=== PATIENT | male | born 1985 ===

== ENCOUNTER 2021-04-19 01:47 | Inpatient (IN) ==
[2021-04-19] MEDS ORDERED: Octreotide Acetate 50 MCG in NS 0.9% 50 ML 50 ML IV ONE (02:21)
[2021-04-19] MEDS ORDERED: Pantoprazole VIAL 40 MG VIAL IV ONE (02:21)
[2021-04-19 02:28] LABS: ABS Basophils 0.1 10^3/ul (0-0.2); ABS Eosinophils 0.2 10^3/ul (0-0.6); ABS Monocytes 0.8 10^3/ul (0-0.8); ABS Neutrophils 9.3 10^3/ul (1.5-7.7); Eosinophil % 1.3 %; Hematocrit 39 % (42-52); Hemoglobin 13.6 g/dL (14.0-18.0); Lymphocyte % 22.3 %; Mean Corpuscular HGB Conc 35 g/dL (31-36); Mean Corpuscular Hemoglobin 36 pg (27-31); Mean Corpuscular Volume 103 fL (80-94); Mean Platelet Volume 9.6 fL (7.4-10.4); Nucleated Red Blood Cells % 0.1; Platelet Count 161 10^3/uL (150-450); Red Blood Count 3.83 10^6 /uL (4.18-5.48); Red Cell Distribution Width 13 % (10-15); White Blood Count 13.3 10^3/uL (3.5-10.8)
[2021-04-19] MEDS ORDERED: Lactated Ringers 1000 ml BAG 1,000 ML IV ONE (02:30)
[2021-04-19 02:45] LABS: Albumin 3.9 g/dL (3.2-5.2); Albumin/Globulin Ratio 0.8 (1-3); Calcium 9.6 mg/dL (8.6-10.3); Globulin 5.2 g/dL (2-4); Total Bilirubin 3.1 mg/dL (0.2-1.0); Total Protein 9.1 g/dL (6.4-8.9)
[2021-04-19 02:46] LABS: Potassium 3.8 mmol/L (3.5-5.0)
[2021-04-19] MEDS ORDERED: Piperacillin/Tazobac ADVAN 3.375 GM in NS 0.9% 100 ml BAG 100 ML IV ONE (03:06)
[2021-04-19] MEDS: Octreotide Acetate 500 MCG in NS 0.9% 100 ml BAG 100 ML IV SCH ×2 (03:54→13:46)
[2021-04-19] MEDS: Pantoprazole 80 mg in NS BAG 80 MG/250 ML BAG IV SCH ×2 (04:30→13:46)
[2021-04-19] MEDS ORDERED: Ondansetron 4 mg VIAL 2 MG/ML 2 ml VIAL IV PRN (05:15)
[2021-04-19] MEDS ORDERED: Nicotine Lozenge mini 4 MG LOZNG.MINI MT PRN (05:40)
[2021-04-19] MEDS ORDERED: Zosyn per Pharmacy NOTE FOLLOW UP SCH (06:00)
[2021-04-19] MEDS ORDERED: Thiamine 100 MG/ML 2 ml VIAL (200 mg) IM ONE (06:16)
[2021-04-19 06:20] LABS: Activated Partial Thrombo Time 35.6 seconds (26.0-38.0); INR 1.58 (0.86-1.15)
[2021-04-19] MEDS ORDERED: Iohexol 300 (CONTRAST) 10 ML SDV IV ONE (06:31)
[2021-04-19 06:55] LABS: Rapid COVID-19 Molecular Undetected (Undetected)
[2021-04-19] MEDS ORDERED: LORazepam 2 mg VIAL 1 ml IV PUSH SCH (07:00)
[2021-04-19 07:51] LABS: Hematocrit 34 % (42-52); Hemoglobin 11.7 g/dL (14.0-18.0)
[2021-04-19] MEDS: LORazepam 2 mg VIAL 1 ml IV PUSH SCH ×2 (07:57→16:23)
[2021-04-19] MEDS: Nicotine PATCH 21 MG/24 HR PATCH TRANSDERM SCH (08:14)
[2021-04-19 09:00] LABS: Direct Bilirubin 1.3 mg/dL (0.03-0.18)
[2021-04-19] MEDS: ZOSYN 3.375 GM Q8H per EXTENDED INFUSION IV SCH ×2 (09:22→17:20)
[2021-04-19 10:24] LABS: Hematocrit 34 % (42-52); Hemoglobin 11.7 g/dL (14.0-18.0)
[2021-04-19 11:13] LABS: Hepatitis B Surface Antigen Nonreactive (Nonreactive)
[2021-04-19 11:18] LABS: Hepatitis A Ab IgM Negative (Negative)
[2021-04-19 11:19] LABS: Hepatitis B Core IgM Nonreactive (Nonreactive)
[2021-04-19 11:24] LABS: HIV 4th Generation Nonreactive (Nonreactive)
[2021-04-19 11:30] LABS: Hepatitis C Antibody Negative (Negative)
[2021-04-19 13:06] LABS: Urine Appearance Clear; Urine Bilirubin Negative (Negative); Urine Blood Negative (Negative); Urine Color Amber; Urine Glucose Negative (Negative); Urine Ketones Trace (Negative); Urine Nitrite Negative (Negative); Urine Protein Negative (Negative); Urine Urobilinogen Negative (Negative)
[2021-04-19 13:39] LABS: Urine Specific Gravity > 1.060 (1.002-1.030)
[2021-04-19 13:56] LABS: Hematocrit 37 % (42-52); Hemoglobin 12.7 g/dL (14.0-18.0)
[2021-04-19] MEDS ORDERED: fentaNYL 100 mcg/2 ml 50 MCG/ML VIAL ONE (14:05)
[2021-04-19] MEDS ORDERED: Midazolam 10 mg/10 ml VIAL 1 mg/ml 10 ml VIAL (10 mg) ONE (14:05)
[2021-04-19] MEDS ORDERED: Lorazepam PYXIS KEY PRN (14:13)
[2021-04-19] MEDS ORDERED: diPHENhydraMINE IV 50 MG/ML 1 ml VIAL (BENADRYL) ONE (14:42)
[2021-04-19 17:07] LABS: Hematocrit 32 % (42-52); Hemoglobin 10.9 g/dL (14.0-18.0)
[2021-04-19] MEDS: NS 0.9% 1000 ml BAG 1,000 ML IV SCH (21:33)
[2021-04-20] MEDS: Pantoprazole 80 mg in NS BAG 80 MG/250 ML BAG IV SCH ×2 (00:07→09:59)
[2021-04-20] MEDS: Octreotide Acetate 500 MCG in NS 0.9% 100 ml BAG 100 ML IV SCH ×2 (00:29→09:59)
[2021-04-20] MEDS: ZOSYN 3.375 GM Q8H per EXTENDED INFUSION IV SCH ×3 (01:29→16:48)
[2021-04-20 05:59] LABS: Albumin/Globulin Ratio 0.8 (1-3); Calcium 8.1 mg/dL (8.6-10.3); Potassium 3.8 mmol/L (3.5-5.0); Total Bilirubin 3.6 mg/dL (0.2-1.0)
[2021-04-20 07:17] LABS: ABS Basophils 0.1 10^3/ul (0-0.2); ABS Eosinophils 0.2 10^3/ul (0-0.6); ABS Lymphocytes 1.6 10^3/ul (1.0-4.8); ABS Monocytes 0.5 10^3/ul (0-0.8); ABS Neutrophils 4.5 10^3/ul (1.5-7.7); Eosinophil % 2.4 %; Hematocrit 30 % (42-52); Hemoglobin 10.4 g/dL (14.0-18.0); Lymphocyte % 23.2 %; Mean Corpuscular HGB Conc 35 g/dL (31-36); Mean Corpuscular Hemoglobin 36 pg (27-31); Mean Corpuscular Volume 104 fL (80-94); Red Cell Distribution Width 13 % (10-15); White Blood Count 6.7 10^3/uL (3.5-10.8)
[2021-04-20 07:53] LABS: Mean Platelet Volume 9.4 fL (7.4-10.4); Platelet Count 82 10^3/uL (150-450)
[2021-04-20] MEDS: Nicotine PATCH 21 MG/24 HR PATCH TRANSDERM SCH (09:58)
[2021-04-20] MEDS: Multivitamins/Minerals TAB PO SCH (09:59)
[2021-04-20] MEDS: NS 0.9% 1000 ml BAG 1,000 ML IV SCH ×2 (10:03→22:31)
[2021-04-20] MEDS ORDERED: Gadoxetate (CONTRAST) 181.43 MG/ML 10 ML SDV IV ONE (16:42)
[2021-04-21] MEDS ORDERED: Octreotide Acetate 500 MCG in NS 0.9% 100 ml BAG 100 ML IV SCH ×2
[2021-04-21] MEDS ORDERED: Pantoprazole 80 mg in NS BAG 80 MG/250 ML BAG IV SCH ×2
[2021-04-21] MEDS: Pantoprazole 80 mg in NS BAG 80 MG/250 ML BAG IV SCH (00:02)
[2021-04-21] MEDS: Octreotide Acetate 500 MCG in NS 0.9% 100 ml BAG 100 ML IV SCH (00:02)
[2021-04-21] MEDS: ZOSYN 3.375 GM Q8H per EXTENDED INFUSION IV SCH ×2 (02:21→08:12)
[2021-04-21 06:02] LABS: Potassium 3.7 mmol/L (3.5-5.0)
[2021-04-21 06:12] LABS: ABS Eosinophils 0.2 10^3/ul (0-0.6); ABS Lymphocytes 1.5 10^3/ul (1.0-4.8); ABS Monocytes 0.4 10^3/ul (0-0.8); ABS Neutrophils 4.4 10^3/ul (1.5-7.7); Eosinophil % 2.5 %; Hematocrit 31 % (42-52); Hemoglobin 10.5 g/dL (14.0-18.0); Lymphocyte % 23.6 %; Mean Corpuscular HGB Conc 34 g/dL (31-36); Mean Corpuscular Hemoglobin 36 pg (27-31); Mean Corpuscular Volume 104 fL (80-94); Mean Platelet Volume 10.1 fL (7.4-10.4); Platelet Count 73 10^3/uL (150-450); Red Blood Count 2.94 10^6 /uL (4.18-5.48); Red Cell Distribution Width 13 % (10-15); White Blood Count 6.6 10^3/uL (3.5-10.8)
[2021-04-21] MEDS: NS 0.9% 1000 ml BAG 1,000 ML IV SCH (08:20)
[2021-04-21] MEDS ORDERED: fentaNYL 100 mcg/2 ml 50 MCG/ML VIAL ONE (08:33)
[2021-04-21 09:58] LABS: Albumin 2.9 g/dL (3.4-4.7); Albumin/Globulin Ratio 0.61; Gamma Globulin 2.7 g/dL (0.6-1.6); Total Protein(PEP) 7.5 g/dL (6.3 - 7.9)
[2021-04-21 11:08] VITALS: BP 121/77
[2021-04-21] MEDS: Nicotine PATCH 21 MG/24 HR PATCH TRANSDERM SCH (11:14)
[2021-04-21] MEDS: Multivitamins/Minerals TAB PO SCH (11:17)
[2021-04-21 14:21] LABS: Albumin/Globulin Ratio 0.8 (1-3); Globulin 3.6 g/dL (2-4); Total Bilirubin 2.9 mg/dL (0.2-1.0); Total Protein 6.6 g/dL (6.4-8.9)
[2021-04-22 10:25] LABS: Albumin 3.9 mg/dL; Albumin/Globulin Ratio 0.29; Gamma Globulin 3.2 mg/dL; Protein,Total, Random Urine 17 mg/dL
== END 2021-04-21 16:50 | disposition home or self-care (01) | DRG 242 ==
LOC: ED 01:47 → SSU 08:33 → SUATTDRO 08:33
PROVIDERS: ADMIT Internal Medicine; ATTEND Hospitalist

== ENCOUNTER 2022-12-08 22:51 | Inpatient (IN) ==
[2022-12-08] MEDS ORDERED: Octreotide Acetate 50 MCG in NS 0.9% 50 ML 50 ML IV ONE (23:16)
[2022-12-08] MEDS ORDERED: cefTRIAXone 1 gm/50 mL D5W 1 GM/50 ML BAG IV ONE (23:19)
[2022-12-08] MEDS ORDERED: Thiamine 100 MG/ML 2 ml VIAL 100 MG, Folic Acid IV 1 MG, Multiple Vitamin IV ADULT 10 M... IV ONE (23:19)
[2022-12-09 00:14] LABS: Hematocrit 33.5 % (38-53); Hemoglobin 11.4 g/dL (13.2-16.3); Mean Corpuscular Hemoglobin 34.3 pg (27-33); Mean Corpuscular Hgb Conc 34.2 g/dL (31-36); Mean Corpuscular Volume 100.3 fL (80-97); Red Blood Count 3.34 10^6/uL (4.06-5.63); Red Cell Distribution Width 15.7 % (12-17)
[2022-12-09 00:16] LABS: Activated Partial Thrombo Time 34.4 seconds (26.0-38.0); Albumin 3.5 g/dL (3.2-5.2); Albumin/Globulin Ratio 0.7 (1-3); Calcium 8.7 mg/dL (8.6-10.3); Creatinine, Serum 0.83 mg/dL (0.67-1.17); Globulin 4.8 g/dL (2-4); INR 1.78 (0.88-1.18); Potassium 3.5 mmol/L (3.5-5.0); Total Bilirubin 6.9 mg/dL (0.2-1.0); Total Protein 8.3 g/dL (6.4-8.9); eGFR CKD-EPI 117.1 (>60)
[2022-12-09] MEDS: Octreotide Acetate 500 MCG in NS 0.9% 100 ml BAG 100 ML IV SCH ×3 (01:08→20:26)
[2022-12-09 01:46] LABS: ABS Lymphocytes 0.6 10^3/uL (1.0-4.8); ABS Monocytes 0.6 10^3/uL (0.0-1.1); ABS Neutrophils 4.8 10^3/uL (1.5-7.6); ABS Nucleated RBC 0.01 10^3/ul; Eosinophil % 0.4 %; Lymphocyte % 9.5 %; Mean Platelet Volume 10.1 fL (7.5-11.2); Nucleated Red Blood Cells % 0.2 /100 WBC (0.0-0.4); Platelet Count 52 10^3/uL (150-450)
[2022-12-09 02:24] LABS: Protime (Maddrey) 19.7 seconds (9.5-12.8)
[2022-12-09] MEDS ORDERED: Ondansetron 4 mg VIAL 2 MG/ML 2 ml VIAL IV PRN (02:28)
[2022-12-09] MEDS ORDERED: Nicotine Lozenge mini 2 MG LOZNG.MINI MT PRN (02:51)
[2022-12-09] MEDS ORDERED: Lactated Ringers 1000 ml BAG 1,000 ML IV ONE ×2 (02:53→13:27)
[2022-12-09 03:03] LABS: Total Bilirubin 6.9 mg/dL (0.2-1.0)
[2022-12-09 03:30] LABS: Magnesium 1.1 mg/dL (1.9-2.7)
[2022-12-09 03:51] LABS: Folate 12.01 ng/mL (5.90-24.80)
[2022-12-09 03:52] LABS: Vitamin B12 > 1450 pg/mL (180-914)
[2022-12-09] MEDS ORDERED: Magnesium Sulf 4 GM/100 ML IV 4,000 MG/100 ML BAG IVPB ONE (04:05)
[2022-12-09 04:14] LABS: Hematocrit 30.6 % (38-53); Hemoglobin 10.5 g/dL (13.2-16.3)
[2022-12-09] MEDS: Pantoprazole VIAL 40 MG VIAL IV SCH ×2 (04:57→20:20)
[2022-12-09] MEDS ORDERED: Prochlorperazine 5 mg/ml 2 ml VIAL (10 mg) IV ONE (06:31)
[2022-12-09 06:44] LABS: ABS Lymphocytes 0.7 10^3/uL (1.0-4.8); ABS Monocytes 0.5 10^3/uL (0.0-1.1); ABS Neutrophils 3.7 10^3/uL (1.5-7.6); Eosinophil % 0.2 %; Hematocrit 28.6 % (38-53); Hemoglobin 9.9 g/dL (13.2-16.3); Lymphocyte % 14.7 %; Mean Corpuscular Hemoglobin 35.3 pg (27-33); Mean Corpuscular Hgb Conc 34.7 g/dL (31-36); Mean Corpuscular Volume 101.6 fL (80-97); Mean Platelet Volume 10.5 fL (7.5-11.2); Platelet Count 41 10^3/uL (150-450); Red Blood Count 2.82 10^6/uL (4.06-5.63); Red Cell Distribution Width 15.3 % (12-17)
[2022-12-09 06:45] LABS: INR 1.88 (0.88-1.18)
[2022-12-09 06:51] LABS: Albumin 3.1 g/dL (3.2-5.2); Albumin/Globulin Ratio 0.7 (1-3); Calcium 8.1 mg/dL (8.6-10.3); Creatinine, Serum 0.74 mg/dL (0.67-1.17); Globulin 4.2 g/dL (2-4); Potassium 4.1 mmol/L (3.5-5.0); Total Bilirubin 6.5 mg/dL (0.2-1.0); Total Protein 7.3 g/dL (6.4-8.9); eGFR CKD-EPI 121.2 (>60)
[2022-12-09] MEDS: Nicotine PATCH 14 MG/24 HR PATCH TRANSDERM SCH (09:08)
[2022-12-09] MEDS: Lactated Ringers 1000 ml BAG 1,000 ML IV SCH ×2 (10:25→20:32)
[2022-12-09] MEDS ORDERED: fentaNYL 100 mcg/2 ml 50 MCG/ML VIAL ONE (10:26)
[2022-12-09] MEDS ORDERED: Midazolam 10 mg/10 ml VIAL 1 mg/ml 10 ml VIAL (10 mg) ONE (10:26)
[2022-12-09] MEDS ORDERED: fentaNYL 100 mcg/2 ml 50 MCG/ML VIAL IV SLOW PU ONE (13:27)
[2022-12-09] MEDS ORDERED: Midazolam 10 mg/10 ml VIAL 1 mg/ml 10 ml VIAL (10 mg) IV SLOW PU ONE (13:27)
[2022-12-09] MEDS ORDERED: Flumazenil 0.5 mg/5 ml 0.1 MG/ML 5 ml VIAL IV PRN (13:27)
[2022-12-09] MEDS ORDERED: Lidocaine 2% JELLY 6 ML Topical TOPICAL ONE (13:27)
[2022-12-09] MEDS ORDERED: Ondansetron 4 mg VIAL 2 MG/ML 2 ml VIAL IV ONE (13:27)
[2022-12-09] MEDS ORDERED: Naloxone 0.4 mg VIAL 0.4 mg/ml 1 ml VIAL IV PUSH PRN (13:27)
[2022-12-09 14:13] LABS: ABS Basophils 0.1 10^3/uL (0.0-0.1); ABS Lymphocytes 1.2 10^3/uL (1.0-4.8); ABS Monocytes 0.6 10^3/uL (0.0-1.1); ABS Neutrophils 6.7 10^3/uL (1.5-7.6); ABS Nucleated RBC 0.01 10^3/ul; Eosinophil % 0.4 %; Hematocrit 26.7 % (38-53); Hemoglobin 9.2 g/dL (13.2-16.3); Lymphocyte % 13.9 %; Mean Corpuscular Hemoglobin 35.1 pg (27-33); Mean Corpuscular Hgb Conc 34.4 g/dL (31-36); Mean Platelet Volume 9.9 fL (7.5-11.2); Nucleated Red Blood Cells % 0.1 /100 WBC (0.0-0.4); Platelet Count 54 10^3/uL (150-450); Red Blood Count 2.62 10^6/uL (4.06-5.63); Red Cell Distribution Width 15.6 % (12-17); White Blood Count 8.7 10^3/uL (3.6-10.2)
[2022-12-09 15:55] LABS: C Reactive Protein 8.83 mg/L (<8.01)
[2022-12-09 20:09] LABS: Hematocrit 23.3 % (38-53)
[2022-12-09] MEDS: cefTRIAXone 1 gm/50 mL D5W 1 GM/50 ML BAG IV SCH (23:05)
[2022-12-10 02:23] LABS: Hemoglobin 7.4 g/dL (13.2-16.3)
[2022-12-10] MEDS: Octreotide Acetate 500 MCG in NS 0.9% 100 ml BAG 100 ML IV SCH ×2 (06:28→16:28)
[2022-12-10] MEDS: Nicotine PATCH 14 MG/24 HR PATCH TRANSDERM SCH (08:31)
[2022-12-10] MEDS: Lactated Ringers 1000 ml BAG 1,000 ML IV SCH ×2 (08:42→17:59)
[2022-12-10 08:58] LABS: ABS Basophils 0.1 10^3/uL (0.0-0.1); ABS Eosinophils 0.1 10^3/uL (0.0-0.5); ABS Lymphocytes 1.3 10^3/uL (1.0-4.8); ABS Monocytes 0.5 10^3/uL (0.0-1.1); ABS Neutrophils 5.1 10^3/uL (1.5-7.6); Eosinophil % 1.1 %; Hematocrit 24.1 % (38-53); Hemoglobin 8.3 g/dL (13.2-16.3); Lymphocyte % 18.3 %; Mean Corpuscular Hemoglobin 35.1 pg (27-33); Mean Corpuscular Hgb Conc 34.7 g/dL (31-36); Mean Corpuscular Volume 101.1 fL (80-97); Mean Platelet Volume 10.7 fL (7.5-11.2); Nucleated Red Blood Cells % 0.1 /100 WBC (0.0-0.4); Platelet Count 44 10^3/uL (150-450); Red Blood Count 2.38 10^6/uL (4.06-5.63); Red Cell Distribution Width 16.7 % (12-17)
[2022-12-10 09:11] LABS: Albumin 2.7 g/dL (3.2-5.2); Albumin/Globulin Ratio 0.8 (1-3); Calcium 7.9 mg/dL (8.6-10.3); Creatinine, Serum 0.71 mg/dL (0.67-1.17); Globulin 3.6 g/dL (2-4); Magnesium 1.4 mg/dL (1.9-2.7); Total Bilirubin 8.2 mg/dL (0.2-1.0); Total Protein 6.3 g/dL (6.4-8.9); eGFR CKD-EPI 122.7 (>60)
[2022-12-10 09:28] LABS: Urine Appearance Clear; Urine Bilirubin 1+ (Negative); Urine Blood Negative (Negative); Urine Color Amber; Urine Glucose Negative (Negative); Urine Ketones Trace (Negative); Urine Nitrite Negative (Negative); Urine Protein Negative (Negative); Urine Specific Gravity 1.024 (1.002-1.030); Urine Urobilinogen Positive (Negative)
[2022-12-10] MEDS ORDERED: Magnesium Sulfate 2 gm BAG 2 GM/50 ML BAG IVPB ONE (09:31)
[2022-12-10 12:28] LABS: Hematocrit 21.7 % (38-53); Hemoglobin 7.6 g/dL (13.2-16.3)
[2022-12-10 12:59] LABS: Protime (Maddrey) 25.6 seconds (9.5-12.8)
[2022-12-10 13:10] LABS: Total Bilirubin 7.4 mg/dL (0.2-1.0)
[2022-12-10 13:25] LABS: Hepatitis B Surface Antigen Nonreactive (Nonreactive)
[2022-12-10 13:30] LABS: Hepatitis A Ab IgM Negative (Negative)
[2022-12-10 13:31] LABS: Hepatitis B Core IgM Nonreactive (Nonreactive)
[2022-12-10 13:43] LABS: Hepatitis C Antibody Negative (Negative)
[2022-12-10 18:42] LABS: Hematocrit 23.5 % (38-53); Hemoglobin 8.2 g/dL (13.2-16.3)
[2022-12-10] MEDS: cefTRIAXone 1 gm/50 mL D5W 1 GM/50 ML BAG IV SCH (21:17)
[2022-12-11 00:53] LABS: Hematocrit 24.3 % (38-53); Hemoglobin 8.6 g/dL (13.2-16.3)
[2022-12-11 03:55] VITALS: BP 123/64
[2022-12-11] MEDS: Lactated Ringers 1000 ml BAG 1,000 ML IV SCH (04:02)
== END 2022-12-11 08:30 | disposition left against medical advice (07) | DRG 369 ==
LOC: ED 22:51 → EDHOLD 12-09 00:45 → MEDTELE 12-09 03:47
PROVIDERS: ADMIT Student in an Organized Health Care Education/Training Program; ATTEND Hospitalist

== ENCOUNTER 2022-12-11 11:52 | Inpatient (IN) ==
[2022-12-11 13:53] LABS: ABS Basophils 0.1 10^3/uL (0.0-0.1); ABS Lymphocytes 0.9 10^3/uL (1.0-4.8); ABS Monocytes 0.8 10^3/uL (0.0-1.1); ABS Neutrophils 8.8 10^3/uL (1.5-7.6); ABS Nucleated RBC 0.01 10^3/ul; Eosinophil % 0.4 %; Hematocrit 26.1 % (38-53); Hemoglobin 9.1 g/dL (13.2-16.3); Lymphocyte % 8.2 %; Mean Corpuscular Hemoglobin 34.6 pg (27-33); Mean Corpuscular Hgb Conc 34.9 g/dL (31-36); Mean Corpuscular Volume 99.2 fL (80-97); Platelet Count 64 10^3/uL (150-450); Red Blood Count 2.63 10^6/uL (4.06-5.63); Red Cell Distribution Width 17.1 % (12-17); White Blood Count 10.6 10^3/uL (3.6-10.2)
[2022-12-11 13:57] LABS: INR 2.18 (0.88-1.18)
[2022-12-11 14:40] LABS: Albumin 3.2 g/dL (3.2-5.2); Albumin/Globulin Ratio 0.8 (1-3); Calcium 8.4 mg/dL (8.6-10.3); Creatinine, Serum 0.77 mg/dL (0.67-1.17); Direct Bilirubin 4.4 mg/dL (0.03-0.18); Globulin 3.9 g/dL (2-4); Potassium 3.4 mmol/L (3.5-5.0); Total Bilirubin 8.4 mg/dL (0.2-1.0); Total Protein 7.1 g/dL (6.4-8.9); eGFR CKD-EPI 119.7 (>60)
[2022-12-11 15:02] LABS: Urine Appearance Clear; Urine Bilirubin 1+ (Negative); Urine Blood Negative (Negative); Urine Color Amber; Urine Glucose Negative (Negative); Urine Ketones Trace (Negative); Urine Nitrite Negative (Negative); Urine Protein Negative (Negative); Urine Specific Gravity 1.017 (1.002-1.030); Urine Urobilinogen Positive (Negative)
[2022-12-11 15:18] LABS: High Sensitivity Troponin 1 Hr 6 pg/mL (<20)
[2022-12-11 15:28] LABS: Magnesium 1.6 mg/dL (1.9-2.7)
[2022-12-11] MEDS ORDERED: Lactated Ringers 1000 ml BAG 1,000 ML IV ONE (15:34)
[2022-12-11] MEDS ORDERED: Potassium Chlor 20 meq TAB.ER PO ONE (15:37)
[2022-12-11] MEDS ORDERED: Magnesium Sulfate 2 gm BAG 2 GM/50 ML BAG IVPB ONE (15:49)
[2022-12-11 15:51] LABS: Urine Benzodiazepine Screen Presumptive Positive (None Detect); Urine Cannabinoids Screen None Detected (None Detect); Urine Opiates Screen None Detected (None Detect)
[2022-12-11] MEDS: cefTRIAXone 1 gm/50 mL D5W 1 GM/50 ML BAG IV SCH (17:19)
[2022-12-11] MEDS: Nicotine PATCH 21 MG/24 HR PATCH TRANSDERM SCH (17:19)
[2022-12-12] MEDS: Nicotine Lozenge mini 2 MG LOZNG.MINI MT PRN ×6 (03:42→22:32)
[2022-12-12 06:59] LABS: ABS Lymphocytes 1.1 10^3/uL (1.0-4.8); ABS Monocytes 0.7 10^3/uL (0.0-1.1); ABS Neutrophils 7.4 10^3/uL (1.5-7.6); Eosinophil % 0.2 %; Hematocrit 25.9 % (38-53); Hemoglobin 9.1 g/dL (13.2-16.3); Lymphocyte % 12.4 %; Mean Corpuscular Hemoglobin 35.5 pg (27-33); Mean Corpuscular Volume 101.5 fL (80-97); Mean Platelet Volume 9.9 fL (7.5-11.2); Platelet Count 65 10^3/uL (150-450); Red Blood Count 2.55 10^6/uL (4.06-5.63); White Blood Count 9.3 10^3/uL (3.6-10.2)
[2022-12-12 07:45] LABS: Albumin 3.1 g/dL (3.2-5.2); Albumin/Globulin Ratio 0.8 (1-3); Calcium 8.4 mg/dL (8.6-10.3); Creatinine, Serum 0.71 mg/dL (0.67-1.17); Globulin 4.1 g/dL (2-4); Magnesium 1.7 mg/dL (1.9-2.7); Potassium 3.6 mmol/L (3.5-5.0); Total Bilirubin 8.2 mg/dL (0.2-1.0); Total Protein 7.2 g/dL (6.4-8.9); eGFR CKD-EPI 122.7 (>60)
[2022-12-12] MEDS ORDERED: Magnesium Sulfate IV 3 GM in NS 0.9% 100 ml BAG 100 ML IVPB ONE (08:00)
[2022-12-12] MEDS: Nicotine PATCH 21 MG/24 HR PATCH TRANSDERM SCH (08:18)
[2022-12-12] MEDS: cefTRIAXone 1 gm/50 mL D5W 1 GM/50 ML BAG IV SCH (16:38)
[2022-12-13] MEDS: Nicotine Lozenge mini 2 MG LOZNG.MINI MT PRN ×5 (00:52→20:05)
[2022-12-13 06:44] LABS: ABS Eosinophils 0.1 10^3/uL (0.0-0.5); ABS Lymphocytes 0.9 10^3/uL (1.0-4.8); ABS Monocytes 0.6 10^3/uL (0.0-1.1); ABS Neutrophils 3.6 10^3/uL (1.5-7.6); Hematocrit 25.7 % (38-53); Hemoglobin 8.9 g/dL (13.2-16.3); Lymphocyte % 17.7 %; Mean Corpuscular Hemoglobin 35.7 pg (27-33); Mean Corpuscular Hgb Conc 34.7 g/dL (31-36); Mean Corpuscular Volume 102.8 fL (80-97); Mean Platelet Volume 10.1 fL (7.5-11.2); Nucleated Red Blood Cells % 0.1 /100 WBC (0.0-0.4); Platelet Count 62 10^3/uL (150-450); Red Cell Distribution Width 17.2 % (12-17); White Blood Count 5.3 10^3/uL (3.6-10.2)
[2022-12-13 06:52] LABS: Albumin 2.8 g/dL (3.2-5.2); Albumin/Globulin Ratio 0.7 (1-3); Creatinine, Serum 0.77 mg/dL (0.67-1.17); Globulin 3.9 g/dL (2-4); Potassium 3.6 mmol/L (3.5-5.0); Total Bilirubin 9.2 mg/dL (0.2-1.0); Total Protein 6.7 g/dL (6.4-8.9); eGFR CKD-EPI 119.7 (>60)
[2022-12-13 08:00] LABS: Magnesium 1.8 mg/dL (1.9-2.7)
[2022-12-13] MEDS ORDERED: Magnesium Sulfate IV 3 GM in NS 0.9% 100 ml BAG 100 ML IVPB ONE (09:00)
[2022-12-13] MEDS: Nicotine PATCH 21 MG/24 HR PATCH TRANSDERM SCH (10:16)
[2022-12-13] MEDS: cefTRIAXone 1 gm/50 mL D5W 1 GM/50 ML BAG IV SCH (17:57)
[2022-12-14 06:59] LABS: INR 1.69 (0.88-1.18)
[2022-12-14 07:14] LABS: ABS Eosinophils 0.1 10^3/uL (0.0-0.5); ABS Lymphocytes 1.1 10^3/uL (1.0-4.8); ABS Monocytes 0.7 10^3/uL (0.0-1.1); ABS Neutrophils 3.4 10^3/uL (1.5-7.6); Eosinophil % 1.9 %; Hematocrit 28.2 % (38-53); Hemoglobin 9.8 g/dL (13.2-16.3); Lymphocyte % 20.1 %; Mean Corpuscular Hemoglobin 35.6 pg (27-33); Mean Corpuscular Hgb Conc 34.7 g/dL (31-36); Mean Corpuscular Volume 102.4 fL (80-97); Mean Platelet Volume 10.4 fL (7.5-11.2); Nucleated Red Blood Cells % 0.1 /100 WBC (0.0-0.4); Platelet Count 78 10^3/uL (150-450); Red Blood Count 2.75 10^6/uL (4.06-5.63); Red Cell Distribution Width 17.5 % (12-17); White Blood Count 5.3 10^3/uL (3.6-10.2)
[2022-12-14 07:18] LABS: Albumin 2.9 g/dL (3.2-5.2); Albumin/Globulin Ratio 0.7 (1-3); Calcium 8.1 mg/dL (8.6-10.3); Creatinine, Serum 0.72 mg/dL (0.67-1.17); Potassium 3.4 mmol/L (3.5-5.0); Total Protein 6.9 g/dL (6.4-8.9); eGFR CKD-EPI 122.2 (>60)
[2022-12-14] MEDS: Nicotine PATCH 21 MG/24 HR PATCH TRANSDERM SCH ×2 (07:34→10:39)
[2022-12-14 07:52] LABS: Magnesium 1.9 mg/dL (1.9-2.7)
[2022-12-14] MEDS: Nicotine Lozenge mini 2 MG LOZNG.MINI MT PRN ×3 (08:13→19:15)
[2022-12-14] MEDS ORDERED: Magnesium Sulfate IV 3 GM in NS 0.9% 100 ml BAG 100 ML IVPB ONE (08:28)
[2022-12-14] MEDS ORDERED: Potassium Chlor 20 meq TAB.ER PO ONE (08:28)
[2022-12-14] MEDS: cefTRIAXone 1 gm/50 mL D5W 1 GM/50 ML BAG IV SCH (16:55)
[2022-12-15] MEDS: Nicotine Lozenge mini 2 MG LOZNG.MINI MT PRN ×3 (05:03→12:39)
[2022-12-15 07:30] LABS: ABS Eosinophils 0.1 10^3/uL (0.0-0.5); ABS Lymphocytes 1.3 10^3/uL (1.0-4.8); ABS Neutrophils 5.4 10^3/uL (1.5-7.6); Eosinophil % 1.2 %; Hematocrit 28.7 % (38-53); Hemoglobin 9.9 g/dL (13.2-16.3); Lymphocyte % 16.6 %; Mean Corpuscular Hemoglobin 35.3 pg (27-33); Mean Corpuscular Hgb Conc 34.7 g/dL (31-36); Mean Platelet Volume 10.2 fL (7.5-11.2); Platelet Count 103 10^3/uL (150-450); Red Blood Count 2.81 10^6/uL (4.06-5.63); Red Cell Distribution Width 17.2 % (12-17); White Blood Count 7.7 10^3/uL (3.6-10.2)
[2022-12-15 07:49] LABS: Albumin 3.1 g/dL (3.2-5.2); Albumin/Globulin Ratio 0.7 (1-3); Calcium 8.6 mg/dL (8.6-10.3); Creatinine, Serum 0.74 mg/dL (0.67-1.17); Globulin 4.3 g/dL (2-4); Magnesium 1.7 mg/dL (1.9-2.7); Potassium 3.3 mmol/L (3.5-5.0); Total Bilirubin 8.5 mg/dL (0.2-1.0); Total Protein 7.4 g/dL (6.4-8.9); eGFR CKD-EPI 121.2 (>60)
[2022-12-15] MEDS ORDERED: Potassium Chlor 20 meq TAB.ER PO ONE (08:23)
[2022-12-15] MEDS: Nicotine PATCH 21 MG/24 HR PATCH TRANSDERM SCH (09:00)
[2022-12-15] MEDS: cefTRIAXone 1 gm/50 mL D5W 1 GM/50 ML BAG IV SCH (14:35)
[2022-12-15 14:45] VITALS: BP 116/57
== END 2022-12-15 15:30 | disposition home or self-care (01) | DRG 369 ==
LOC: ED 11:52 → EDHOLD 11:52 → SUATTDRO 15:29 → EDHOLD 17:28 → MEDTELE 18:13 → SUATTDRO 12-12 11:00
PROVIDERS: ADMIT Hospitalist; ATTEND Hospitalist

== ENCOUNTER 2023-05-17 18:40 | Inpatient (IN) ==
[2023-05-17 22:52] LABS: Hematocrit 27.6 % (38-53); Hemoglobin 9.5 g/dL (13.2-16.3); Mean Corpuscular Hemoglobin 33.8 pg (27-33); Mean Corpuscular Hgb Conc 34.3 g/dL (31-36); Mean Corpuscular Volume 98.4 fL (80-97); Mean Platelet Volume 9.3 fL (7.5-11.2); Platelet Count 185 10^3/uL (150-450); Red Blood Count 2.81 10^6/uL (4.06-5.63); Red Cell Distribution Width 18.4 % (12-17); White Blood Count 11.2 10^3/uL (3.6-10.2)
[2023-05-17 22:53] LABS: Activated Partial Thrombo Time 32.9 seconds (26.0-38.0); INR 1.43 (0.83-1.13)
[2023-05-17 23:05] LABS: Calcium 9.3 mg/dL (8.6-10.3); Creatinine, Serum 1.25 mg/dL (0.67-1.17); Potassium 4.3 mmol/L (3.5-5.0)
[2023-05-17] MEDS ORDERED: Iohexol 350 (CONTRAST) 500 ML MDV IV ONE (23:09)
[2023-05-17 23:15] LABS: ABS Basophils 0.2 10^3/uL (0.0-0.1); ABS Eosinophils 0.1 10^3/uL (0.0-0.5); ABS Lymphocytes 5.8 10^3/uL (1.0-4.8); ABS Monocytes 0.7 10^3/uL (0.0-1.1); ABS Neutrophils 4.5 10^3/uL (1.5-7.6); ABS Nucleated RBC 0.01 10^3/ul; Eosinophil % 0.7 %; Lymphocyte % 51.3 %
[2023-05-17 23:18] LABS: Albumin 2.8 g/dL (3.2-5.2); Albumin/Globulin Ratio 0.6 (1-3); Globulin 4.4 g/dL (2-4); Total Bilirubin 15.4 mg/dL (0.2-1.0); Total Protein 7.2 g/dL (6.4-8.9)
[2023-05-17 23:51] LABS: Urine Appearance Clear; Urine Bilirubin 2+ (Negative); Urine Blood Negative (Negative); Urine Color Amber; Urine Glucose Negative (Negative); Urine Ketones Negative (Negative); Urine Nitrite Negative (Negative); Urine Protein Negative (Negative); Urine Specific Gravity 1.017 (1.002-1.030); Urine Urobilinogen Positive (Negative)
[2023-05-18 02:56] LABS: Body Fluid Total Nucleated 189 /mcL
[2023-05-18] MEDS ORDERED: Lidocaine PATCH 5% PATCH TRANSDERM ONE (02:59)
[2023-05-18] MEDS: Nicotine Lozenge mini 2 MG LOZNG.MINI MT PRN ×6 (03:11→20:28)
[2023-05-18 03:38] LABS: Body Fluid Mono 68 %; Body Fluid Other Cells 53; Body Fluid Source Peritonial Fluid; Body Fluid Total Cells Counted 200
[2023-05-18 03:39] LABS: Body Fluid Appearance Clear; Body Fluid Color Yellow
[2023-05-18 04:08] LABS: Protime (Maddrey) 16.1 seconds (9.5-12.8)
[2023-05-18 04:10] LABS: Total Bilirubin 15.4 mg/dL (0.2-1.0)
[2023-05-18] MEDS: Albumin Human 25% 25 GM/100 ML BTL IV SCH ×4 (06:18→12:26)
[2023-05-18 06:40] LABS: Calcium 8.9 mg/dL (8.6-10.3); Creatinine, Serum 1.04 mg/dL (0.67-1.17); Potassium 4.2 mmol/L (3.5-5.0)
[2023-05-18 07:16] LABS: Albumin 2.6 g/dL (3.2-5.2); Albumin/Globulin Ratio 0.6 (1-3); Globulin 4.1 g/dL (2-4); Magnesium 1.4 mg/dL (1.9-2.7); Total Bilirubin 13.6 mg/dL (0.2-1.0); Total Protein 6.7 g/dL (6.4-8.9)
[2023-05-18 07:41] LABS: Hematocrit 25.7 % (38-53); Hemoglobin 8.9 g/dL (13.2-16.3); Mean Corpuscular Hemoglobin 34.1 pg (27-33); Mean Corpuscular Hgb Conc 34.6 g/dL (31-36); Mean Corpuscular Volume 98.4 fL (80-97); Mean Platelet Volume 9.5 fL (7.5-11.2); Platelet Count 148 10^3/uL (150-450); Red Blood Count 2.61 10^6/uL (4.06-5.63); White Blood Count 8.2 10^3/uL (3.6-10.2)
[2023-05-18] MEDS ORDERED: cefTRIAXone 1 gm/50 mL D5W 1 GM/50 ML BAG IV SCH (08:00)
[2023-05-18] MEDS ORDERED: Magnesium Sulf 4 GM/100 ML IV 4,000 MG/100 ML BAG IVPB ONE (08:00)
[2023-05-18 08:06] LABS: Target Cells 1+
[2023-05-18] MEDS ORDERED: Nicotine PATCH 21 MG/24 HR PATCH TRANSDERM SCH (10:00)
[2023-05-18 11:58] LABS: ABS Eosinophils 0.1 10^3/ul (0.0-0.5); ABS Lymphocytes 1.1 10^3/ul (1.0-4.8); ABS Monocytes 0.4 10^3/ul (0.0-1.1); ABS Neutrophils 6.6 10^3/ul (1.5-7.6)
[2023-05-18] MEDS ORDERED: KETAMINE HCL 10 MG/ML 20 ml VIAL (200 MG) ONE (12:28)
[2023-05-18] MEDS ORDERED: Ondansetron 4 mg VIAL 2 MG/ML 2 ml VIAL ONE (12:29)
[2023-05-18] MEDS ORDERED: Propofol 10 MG/ML 20 ML BTL ONE ×3 (12:29→13:42)
[2023-05-18] MEDS ORDERED: Lidocaine 2% PF 5 ML VIAL ONE (12:29)
[2023-05-18] MEDS ORDERED: Naloxone 0.4 mg VIAL 0.4 mg/ml 1 ml VIAL IV PRN (14:18)
[2023-05-18] MEDS ORDERED: Octreotide Acetate 500 MCG in NS 0.9% 100 ml BAG 100 ML IV SCH (15:00)
[2023-05-18 21:13] VITALS: BP 127/70
[2023-05-19 15:43] LABS: Albumin, BF 0.9 g/dL; Fluid Type, Albumin Peritoneal Fluid; Fluid Type, Amylase Peritoneal Fluid; Fluid Type, Protein, Total Peritoneal Fluid; Glucose, BF 118 mg/dL; Total Protein, BF 1.6 g/dL
[2023-05-20 15:02] LABS: Lactate Dehydrogenase, BF 56 U/L
== END 2023-05-18 21:35 | disposition short-term general hospital (02) | DRG 432 ==
LOC: ED 18:40 → EDHOLD 05-18 02:16 → SUATTDRO 05-18 02:16 → SSU 05-18 04:27
PROVIDERS: ADMIT Internal Medicine; ATTEND Internal Medicine
PROC: O.GIEGD (2023-05-18 16:20)